=== PATIENT | male | born 1965 | race Hispanic/Latino ===

== ENCOUNTER 2023-02-14 07:45 | Emergency (ER) | payer OTHER ==
[~2023-02-14] VITALS: Ht 182.9 cm; Wt 94.3 kg
[2023-02-14 07:48] VITALS: TEMP 97.9
[2023-02-14] MEDS ORDERED: GABA-1171 PO (07:59)
[2023-02-14] MEDS ORDERED: IBUP200C25 PO (07:59)
[2023-02-14] MEDS ORDERED: LISI40TA4 PO (07:59)
[2023-02-14 11:57] VITALS: BP 132/86; O2SAT 100
== END 2023-02-14 12:05 | disposition home or self-care (01) ==
LOC: M ED 07:45 → EDBD 07:45 → M ED 12:05
DX: S92.244A Nondisplaced fracture of medial cuneiform of right foot, initial encounter for closed fracture (principal); S92.314A Nondisplaced fracture of first metatarsal bone, right foot, initial encounter for closed fracture; S92.324A Nondisplaced fracture of second metatarsal bone, right foot, initial encounter for closed fracture; S90.811A Abrasion, right foot, initial encounter; I10 Essential (primary) hypertension; Y92.9 Unspecified place or not applicable; Y93.9 Activity, unspecified; Y99.9 Unspecified external cause status; Z79.811 Long term (current) use of aromatase inhibitors; Z79.891 Long term (current) use of opiate analgesic; Z79.899 Other long term (current) drug therapy